=== PATIENT | female | born 1990 | race Native Hawaiian/Other Pacific Islander ===

== ENCOUNTER 2025-05-01 03:51 | Emergency (ER) | payer MEDICAID, SELFPAY ==
[2025-05-01 04:11] VITALS: BP 116/90; PULSE 102; RESP 20; TEMP 36.2; O2SAT 97; BMI 33.3
[2025-05-01 04:37] LABS: Add Manual Diff / Slide Review NO; Hematocrit 39.1 % (36-46); Hemoglobin 13.3 g/dL (12.0-16.0); Lymphocytes Absolute Auto 2000 /uL (1100-4500); Mean Corpuscular HGB Conc 34.0 % (30-36); Mean Corpuscular Hemoglobin 30.0 PG (26-34); Mean Corpuscular Volume 88.2 fL (80-100); Platelet Count 325 X10^3/uL (150-400)
--- NOTE | 2025-05-01 04:41 | EKG_ITS ---
[facility] [address], [place] [address] Test Date: 2025-05-01 Pat Name: Dede Clifton Department: [facility] Room: Gender: Female Biomedical Manager: HALIMA : 1990 Requested By: Order Number: [id number] Reading MD: George Bonilla Measurements Intervals [place] Rate: 78 P: 20 MO: 118 QRS: 59 QRSD: 100 T: 37 QT: 374 QTc: 426 Interpretive Statements Normal sinus rhythm Electronically Signed On 05-01-2025 17:28:29 PDT by George Bonilla
[2025-05-01 04:47] LABS: Alanine Aminotransferase 48 IU/L (<35); Albumin 4.2 g/dL (3.5-5.0); Albumin Globulin Ratio 1.4 (1.0-2.8); Alkaline Phosphatase 24 U/L (38-126); Blood Urea Nitrogen 13 mg/dL (7-17); Calcium 9.2 mg/dL (8.4-10.2); Carbon Dioxide 27 mmol/L (22-32); Chloride 104 mmol/L (98-107); Estimated Glomerular Filt Rate > 60 mL/min (>60); Globulin 2.9 g/dL (1.7-4.1); Glucose 73 mg/dL (70-99); HEMOLYSIS 16 (0-50); Lipase 24 U/L (23-300); Potassium 3.5 mmol/L (3.4-5.1); Sodium 140 mmol/L (137-145); Total Protein 7.1 g/dL (6.3-8.2)
--- NOTE | 2025-05-01 04:50 | ED.ABDPAIN ---
HPI - Abdominal Pain General Chief Complaint: Abdominal Pain Stated Complaint: Vomiting, Fatigue, Abdominal Pain Time Seen by Provider: 05/01/25 04:37 Source: patient Mode of arrival: Wheelchair History of Present Illness HPI narrative: This 34-year-old female complaining of 2 weeks of vomiting. Also having diarrhea and diffuse abdominal discomfort. He is also having some diarrhea which is nonbloody. Says she is having very frequent vomiting with anything she eats, does not notice a great deal of nausea with this. She is not having urinary symptoms or fevers she has had no previous abdominal surgeries other than a tubal ligation. He is on no other prescription medications. Has not had similar symptoms in the past. Related Data Previous Rx's ?Medication ?Instructions ?Recorded ondansetron 4 mg disintegrating 4 mg PO Q6H PRN nausea and 05/01/25 tablet vomiting #14 tabs Allergies Allergy/AdvReac Type Severity Reaction Status Date / Time No Known Drug Allergies Allergy Verified 05/01/25 04:11 Patient History Smoking Status: Never smoker Exam Initial Vital Signs Initial Vital Signs: Vital Signs Temperature 97.1 F L 05/01/25 04:11 Pulse Rate 102 H 05/01/25 04:11 Respiratory Rate 20 05/01/25 04:11 Blood Pressure 116/90 05/01/25 04:11 Pulse Oximetry 97 05/01/25 04:11 Oxygen Delivery Method Room Air 05/01/25 04:11 Vital signs notable for mild tachycardia Const General: cooperative and No acute distress HENMT Head: normocephalic and atraumatic Face and sinus: face symmetric Mouth: moist mucous membranes Eyes Pupils: PERRL EOM: EOM intact bilaterally Neck Neck: normal visual inspection, supple and No JVD Chest Chest: normal inspection of the chest Resp Effort & Inspection: normal respiratory effort and able to speak in complete sentences Auscultation: clear to auscultation bilaterally Cardio Rate: regular rate Rhythm: regular rhythm Heart Sounds: no murmurs Other: Normal heart rate GI Inspection: normal to inspection Palpation: soft Auscultation: normal bowel sounds Back/Spine/Pelvis Back: normal to inspection Skin General: no rashes or lesions noted and warm Neuro General: patient alert, patient oriented x3 and moves all extremities Speech: speech normal Extrem General: full ROM Psych Appearance: grossly normal Course Orders Ordered: ED Orders 05/01/25 04:15 EKG-12 Lead Stat 05/01/25 04:20 Complete Blood Count AUTO DIFF Stat Comprehensive Metabolic Panel Stat ETOH [Ethanol (ETOH)] Stat Lipase Stat Ondansetron HCl (Ondansetron 4 Mg/2 Ml Inj) 4 mg IV NOW PRN PRN Reason: Nausea And Vomiting Ondansetron HCl (Ondansetron 4 Mg Odt) 4 mg PO NOW PRN PRN Reason: Nausea And Vomiting Discontinued Medications Droperidol (Droperidol 2.5 Mg/Ml Vial) 0.625 mg IV NOW ONE Stop: 05/01/25 04:50 Last Admin: 05/01/25 05:02 Dose: 0.625 mg Sodium Chloride (Normal Saline 0.9%) 1,000 mls @ 1,000 mls/hr IV BOLUS ONE Stop: 05/01/25 05:47 Last Admin: 05/01/25 05:02 Dose: 1,000 mls/hr Reevaluation(s) Reevaluation #1: At 5:55 a.m., patient is requesting that IV be discontinued in she be discharged. She is not vomiting Vital Signs Vital signs: Vital Signs - 8 hr 05/01/25 04:11 05/01/25 05:33 Temperature 97.1 F L Pulse Rate 102 H 84 Respiratory Rate 20 18 Blood Pressure 116/90 116/61 Pulse Oximetry 97 100 Oxygen Delivery Method Room Air Room Air MDM - Abdominal Pain Lab Data Lab results narrative: Lipase was normal, CMP notable for minimal not clinically significant elevations in transaminases. CBC with diff is unremarkable 05/01/25 04:20 05/01/25 04:20 Labs: Lab Results 05/01/25 Range/Units 04:20 WBC 10.1 (4.5-11.0) X10^3/uL RBC 4.44 (4.0-5.2) X10^6/uL Hgb 13.3 (12.0-16.0) g/dL Hct 39.1 (36-46) % MCV 88.2 (80-100) fL MCH 30.0 (26-34) PG MCHC 34.0 (30-36) % RDW 13.6 (11.6-14.8) % Plt Count 325 (150-400) X10^3/uL Neut % (Auto) 70.3 (50-75) % Lymph % (Auto) 19.4 L (25-40) % Cedar % (Auto) 8.6 (3-14) % Eos % (Auto) 1.2 L (2-4) % Baso % (Auto) 0.5 (0-2) % Neut # (Auto) 7100 H (4897-3138) /uL Lymph # (Auto) 2000 (9635-8202) /uL [place]edar # (Auto) 900 (0-900) /uL Eos # (Auto) 100 (0-450) /uL Baso # (Auto) 0 (0-100) /uL Sodium 140 (137-145) mmol/L Potassium 3.5 (3.4-5.1) mmol/L Chloride 104 (98-107) mmol/L Carbon Dioxide 27 (22-32) mmol/L BUN 13 (7-17) mg/dL Creatinine 0.75 (0.52-1.04) mg/dL Estimated GFR > 60 (>60) mL/min BUN/Creatinine Ratio 17.3 (6-22) Glucose 73 (70-99) mg/dL Calcium 9.2 (8.4-10.2) mg/dL Total Bilirubin 0.5 (0.2-1.3) mg/dL AST 41 H (14-36) IU/L ALT 48 H (<35) IU/L Alkaline Phosphatase 24 L (38-126) U/L Total Protein 7.1 (6.3-8.2) g/dL Albumin 4.2 (3.5-5.0) g/dL Globulin 2.9 (1.7-4.1) g/dL Albumin/Globulin Ratio 1.4 (1.0-2.8) Lipase 24 (23-300) U/L Ethyl Alcohol < 10 (<10) mg/dL [facility] Narrative Medical decision making narrative: 34-year-old female with vomiting diarrhea and diffuse abdominal pain since starting Ozempic. Symptoms have persisted for a couple of weeks although she has not taken anymore than medications. Did not have any nausea medication at home, patient appears well overall. Differential diagnosis considered included gastritis, bowel obstruction, adverse medication effect, cholecystitis appendicitis and diverticulitis. Abdomen was nontender, with the duration of her symptoms reassuring labs and vital signs as well as nontender abdomen I thought imaging was unlikely to be beneficial. I considered possible urinary causes but she is not having urinary symptoms. Recommended a clear liquid diet ondansetron as needed for symptoms and she speak with her prescriber about the Ozempic. Discharge Plan Departure Patient Disposition: Home Clinical Impression: Vomiting Qualifiers: Vomiting type: unspecified Nausea presence: without nausea Qualified Code(s): R11.11 - Vomiting without nausea Adverse effects of medication Qualifiers: Encounter type: initial encounter Qualified Code(s): T50.905A - Adverse effect of unspecified drugs, medicaments and biological substances, initial encounter Abdominal pain Qualifiers: Abdominal location: generalized Qualified Code(s): R10.84 - Generalized abdominal pain Instructions: DI for Vomiting -- Adult Activity Restrictions/Additional Instructions: Emergency department workup today is reassuring. I think it is safe for you to go home, I recommend frequent small amounts of liquids to ensure hydration. Make sure that you take something with electrolytes like Gatorade or broth. I have sent a prescription for ondansetron that you can use as needed for vomiting. Do not take any further Ozempic and discuss your symptoms with the prescriber. You can use Tylenol 650-1000 mg every 6 hours as needed for pain. If you are having uncontrolled vomiting fevers or other acute symptoms return to the emergency department Prescriptions: New ondansetron 4 mg tablet,disintegrating 4 mg PO Q6H PRN (Reason: nausea and vomiting) Qty: 14 0RF Stand Alone Forms: Patient Portal/API
[2025-05-01] MEDS: SODIUM CHLORIDE 0.9% 1,000 ML 1000 ML IV (05:02)
[2025-05-01] MEDS: droPERidol 2.5 MG/ML VIAL 0.625 MG IV (05:02)
[2025-05-01 05:33] VITALS: BP 116/61; PULSE 84; RESP 18; O2SAT 100
[2025-05-01 05:36] LABS: Ethanol (ETOH) < 10 mg/dL (<10)
--- NOTE | 2025-05-01 05:53 | PC.NURSE ---
Pt declining to give urine sample. Resting in bed with eyes closed, no s/s distress. No active vomiting.
--- NOTE | 2025-05-01 05:58 | PC.NURSE ---
rounded on pt eyes closed resps even pt responds to nurse voice nurse attempts to obtain urine sample at this time patient refuses to provide urine sample
== END 2025-05-01 06:12 | disposition home or self-care (01) ==
PROVIDERS: Emergency Provider Emergency Medicine
DX: R11.11 Vomiting without nausea (principal); T50.905A Adverse effect of unspecified drugs, medicaments and biological substances, initial encounter; R10.84 Generalized abdominal pain; R19.7 Diarrhea, unspecified
CPT/HCPCS: 36415; 80053; 80320; 83690; 85025; 93005; 96361; 96374; 99284; J1790